=== PATIENT | female | born 1935 | race African-American/Black ===

== ENCOUNTER 2019-10-02 05:38 | Inpatient (IN) | payer MEDICARE ==
[~2019-10-02] VITALS: Ht 154.9 cm; Wt 67.1 kg
[~2019-10-02 05:38] MED LIST: HYDR25TA PO; LOSA100T32 PO
[2019-10-02] MEDS ORDERED: LIDOCAINE HCL 1% 20ML VIAL (Pyxis) INJ ONE (06:31)
[2019-10-02] MEDS ORDERED: BETAMETHASONE ACET/BETAMET 30 MG/5 ML VIAL IM ONE (06:32)
[2019-10-02] MEDS ORDERED: BACITRACIN 50,000 UNITS/VIAL ONE (06:32)
[2019-10-02] MEDS ORDERED: BUPIVACAINE HCL/PF 0.5% (5MG/ML) 10ML ONE (06:32)
[2019-10-02] MEDS ORDERED: LACTATED RINGERS 1,000 ML IV SCH (06:40)
[2019-10-02] MEDS ORDERED: CEFAZOLIN SODIUM 1000MG/VIAL ONE (07:34)
[2019-10-02] MEDS ORDERED: PROPOFOL 200MG/20ML VIAL IV ONE ×3 (07:34→08:13)
[2019-10-02] MEDS ORDERED: SUCCINYLCHOLINE CHLORIDE 200MG/10ML IV ONE (07:34)
[2019-10-02] MEDS ORDERED: MIDAZOLAM HCL 2 MG/2 ML VIAL ONE ×2 (07:34→07:36)
[2019-10-02] MEDS ORDERED: ONDANSETRON HCL 4MG/2ML INJ ONE (07:34)
[2019-10-02] MEDS ORDERED: UBID30CA10 PO (08:48)
[2019-10-02] MEDS ORDERED: OMEG1200 PO (08:48)
[2019-10-02] MEDS ORDERED: FLUMAZENIL 0.1 MG/ML 5ML VIAL IV ONE (09:03)
[2019-10-02] MEDS ORDERED: SODIUM CHLORIDE 0.9% 1,000 ML IV ONE (09:06)
[2019-10-02] MEDS ORDERED: MORPHINE SULFATE 2 MG/ML CPJ (NOT FOR IM USE) IV PRN (09:15)
[2019-10-02] MEDS ORDERED: HYDROMORPHONE HCL/PF 2MG/ML CPJ IV PRN (09:15)
[2019-10-02] MEDS ORDERED: ONDANSETRON HCL 4MG/2ML INJ IV PRN ×2 (09:15→17:15)
[2019-10-02] MEDS ORDERED: HYDR-4001 MT (09:19)
[2019-10-02 13:30] VITALS: BP 155/89
[2019-10-02 16:00] VITALS: BP 156/82
[2019-10-02 16:27] LABS: CHLORIDE 103 mEq/L (98-107)
[2019-10-02 16:32] LABS: BASOPHILS % 0.2 % (0.0-2.0); EOSINOPHILS % 0.4 % (0.0-5.0); HEMATOCRIT. 39.4 % (36.0-48.0); HEMOGLOBIN. 13.4 g/dL (12.0-16.0); LYMPHOCYTES % 24.6 % (20.0-50.0); MEAN CORPUSCULAR HEMOGLOBIN 30.6 pg (28.0-32.0); MEAN CORPUSCULAR VOLUME 90.5 fL (81.0-99.0); MEAN PLATELET VOLUME 8.5 fl (7.4-10.4); MONOCYTES % 12.8 % (2.0-8.0); PLATELET 207 x1000/uL (130-400); RED BLOOD CELL COUNT 4.36 mill/uL (4.2-5.4); RED CELL DISTRIBUTION WIDTH 14.6 % (11.6-14.6)
[2019-10-02] MEDS: HYDROCODONE/ACETAMINOPHEN 10/325MG TABLET PO PRN ×2 (16:35→22:33)
[2019-10-02] MEDS ORDERED: MAGNESIUM/ALUMINUM HYDROXIDE/SIMETHICONE 30ML UDC PO PRN (17:15)
[2019-10-02] MEDS ORDERED: CLONIDINE 0.1MG TABLET PO PRN (17:15)
[2019-10-02] MEDS ORDERED: HYDROCODONE/ACETAMINOPHEN 10/325MG TABLET PO PRN (17:15)
[2019-10-02] MEDS ORDERED: ACETAMINOPHEN 325MG TABLET PO PRN (17:15)
[2019-10-02] MEDS ORDERED: GUAIFENESIN 200MG/10ML SUGAR FREE UDC PO PRN (17:15)
[2019-10-02 20:00] VITALS: BP 106/64
[2019-10-02] MEDS ORDERED: FAMOTIDINE 20MG TABLET PO SCH (21:00)
[2019-10-03] VITALS: BP 128/67
[2019-10-03] MEDS ORDERED: POTASSIUM CHLORIDE 20MEQ TABLET SR PO SCH (02:00)
[2019-10-03] MEDS ORDERED: MAGNESIUM 1 G PREMIX 100 ML IV SCH (03:00)
[2019-10-03 03:15] LABS: PHOSPHORUS 2.7 mg/dL (2.5-4.9)
[2019-10-03 04:00] VITALS: BP 147/76
[2019-10-03] MEDS: HYDROCODONE/ACETAMINOPHEN 10/325MG TABLET PO PRN ×2 (04:30→10:32)
[2019-10-03 09:57] VITALS: BP 138/71
[2019-10-03 12:00] VITALS: BP 138/71
== END 2019-10-03 13:35 | disposition home or self-care (01) | DRG 504 ==
LOC: OR 05:38 → 7WST 05:39
PROVIDERS: ADMIT Podiatrist Foot & Ankle Surgery; ATTEND Podiatrist Foot & Ankle Surgery
PROC: 0QSP04Z Reposition Left Metatarsal with Internal Fixation Device, Open Approach (ICD-10-PCS; principal; 2019-10-02)
PROC: 0SQQ0ZZ Repair Left Toe Phalangeal Joint, Open Approach (ICD-10-PCS; 2019-10-02)
DX: M20.42 Other hammer toe(s) (acquired), left foot (principal); I48.92 Unspecified atrial flutter; M21.612 Bunion of left foot; M20.10 Hallux valgus (acquired), unspecified foot; I10 Essential (primary) hypertension; I44.0 Atrioventricular block, first degree; I48.0 Paroxysmal atrial fibrillation; Z60.2 Problems related to living alone; Z79.899 Other long term (current) drug therapy; Y92.89 Other specified places as the place of occurrence of the external cause; Z98.49 Cataract extraction status, unspecified eye
CPT/HCPCS: 36415; 80053; 83735; 84100; 84436; 84443; 85025; 93005; 93306; 97116; 97161; J0330; J0690; J0702; J2250; J2405; J2704; J3475; J3490